=== PATIENT | male | born 1995 | race Caucasian/White ===

== ENCOUNTER 2019-09-17 06:45 | Emergency (ER) | payer SELFPAY ==
[2019-09-17 07:55] LABS: #Basophils 0.1 thou/uL (0.0-0.2); #Eosinphils 0.1 thou/uL (0.0-0.7); #Lymphocytes 2.4 thou/uL (1.20-3.40); #Monocytes 0.7 thou/uL (0.11-0.59); #Neutrophils 5.9 thou/uL (1.40-6.50); %Basophils 1.5 % (0.0-1.0); %Eosinophils 1.2 % (0.0-10.0); %Lymphocytes 25.6 % (21.0-51.0); %Monocytes 7.7 % (0.0-10.0); %Neutrophils 63.9 % (42.0-75.0); Hemoglobin 15.5 g/dL (14.0-18.0); Mean Corpuscular HGB CONC 32.2 g/dL (32.0-36.0); Mean Corpuscular Hemoglobin 29.8 pg (27.0-31.0); Mean Corpuscular Volume 92.6 fL (78.0-98.0); Mean Platelet Volume 10.6 fL (7.4-10.4); Platelet Count 266 thou/uL (130-400); RBC Distribution Width 11.3 % (11.5-14.5); Red Blood Cell (RBC) Count 5.19 mill/uL (4.70-6.10); White Blood Cell (WBC) Count 9.3 thou/uL (4.8-10.8)
[2019-09-17 08:20] LABS: ALT (SGPT) 14 U/L (8-55); AST (SGOT) 15 U/L (5-34); Albumin 4.6 g/dL (3.5-5.0); Alkaline Phosphatase 60 U/L (40-110); Anion Gap 15 mmol/L (10-20); BUN (Urea Nitrogen) 14 mg/dL (8.9-20.6); Bilirubin, Total 0.8 mg/dL (0.2-1.2); CRP (Inflammatory) Less than 0.50 mg/dL (= or < 0.5); Calc. Creatinine Clearance 0 mL/min (70-130); Calcium 9.1 mg/dL (7.8-10.44); Carbon Dioxide 22 mmol/L (22-29); Chloride 107 mmol/L (98-107); Estimated GFR-MDRD 67; Globulin 2.7 g/dL (2.4-3.5); Glucose 91 mg/dL (70-105); Lipase 24 U/L (8-78); Protein, Total 7.3 g/dL (6.0-8.3); Sodium 140 mmol/L (136-145)
[2019-09-17] MEDS ORDERED: Ondansetron PF 4 MG/2 ML Vial ONE (08:57)
--- NOTE | 2019-09-17 09:06 | RAD ---
PORTABLE CHEST: Date: 09/17/2019 HISTORY: Dyspnea. FINDINGS: Heart size and mediastinum are within normal limits. Lungs are clear of infiltrates. No bony findings . IMPRESSION: No active intrathoracic disease. POS: [facility]
--- NOTE | 2019-09-17 09:20 | CT ---
CT BRAIN WITHOUT CONTRAST: Date: 09/17/2019 HISTORY: Left-sided weakness. FINDINGS: No evidence of acute infarct, hemorrhage, midline shift, or abnormal extra-axial fluid collections ar e seen. The ventricular size is normal and the basilar cisterns are patent. The bony calvarium is int act. There are mucus retention cysts versus polyps in the left maxillary sinus. IMPRESSION: No CT evidence of acute intracranial process. POS: [facility]
--- NOTE | 2019-09-17 10:36 | CT ---
CT ANGIOGRAM HEAD WITH 3D RENDERING CT ANGIOGRAM NECK WITH 3D RENDERING: Date: 09/17/2019 HISTORY: Left-sided weakness for 4 days. FINDINGS: CTA HEAD: No evidence for major branch occlusion. No significant stenosis. No evidence for intracranial aneurys m. Visualized intracranial internal carotid arteries are normal. Vertebrobasilar arteries are normal. M1 segments are normal bilaterally. IMPRESSION: Unremarkable brain CTA with 3D rendering. No evidence for major branch occlusion or aneurysm, or othe r acute process. CTA NECK: The origins of the right and left vertebral arteries are unremarkable. Visualized right and left comm on, internal, and external carotid arteries are unremarkable. No evidence for significant stenosis. N o evidence for soft tissue neck mass or significant adenopathy. IMPRESSION: Unremarkable CTA neck with 3D rendering. Findings discussed with the ER physician, Dr. Sánchez, at 0903 hours. CODE CR. POS: [facility]
[2019-09-17] MEDS ORDERED: Iopamidol 370 76% 125 ML VIAL FS ONE (11:31)
[2019-09-17] MEDS ORDERED: Sodium Chloride 0.9% 100 ML BAG ONE (14:03)
== END 2019-09-17 09:45 | disposition home or self-care (01) ==
LOC: MADERS 06:45
DX: F43.22 Adjustment disorder with anxiety (principal); R20.2 Paresthesia of skin
CPT/HCPCS: 70450; 70496; 70498; 71045; 80053; 83690; 83735; 84443; 84484; 85025; 86140; 93005; J2405; J3490; Q9967